=== PATIENT | female | born 1975 | race Caucasian/White ===

== ENCOUNTER 2016-12-30 22:00 | Inpatient (IN) | payer OTHER ==
--- NOTE | ~2016-12-30 | DS ---
Unit #: [id number] #: [id number] Patient: MONTSERRAT MCLEOD [id number] [place] [address] [id number] MR#: [id number] NAME: MONTSERRAT MCLEOD ROOM: 32 Age: 41 Sex: F Admission Date: 12/31/2016 : 1975 Discharge Date: 01/05/2017 Attending Physician: Jed Spaulding M.D. Primary Care Physician: Primary Care Physician No DISCHARGE SUMMARY REASON FOR ADMISSION The patient is a 41-year-old white female, who is currently homeless. She is admitted with increasing depression, suicidal ideation, and abuse of methamphetamine. HOSPITAL COURSE The patient was admitted to the [address] [place] [address] unit and placed on suicide precautions. She was continued on previously prescribed medications including BuSpar, Seroquel, Zoloft, and trazodone, and Zoloft was increased to 150 mg b.i.d. to address the patient's depressive symptoms. The patient remained seclusive to room with little participation within rather chaotic therapeutic milieu. By 01/05/2017, the patient made arrangements to stay with a friend and denied suicidal ideation. She requested discharge, and it was so ordered. FINAL DIAGNOSES Major depressive disorder, recurrent, moderate; posttraumatic stress disorder by history; alcohol use disorder; cannabis use disorder; methamphetamine use disorder; hypothyroidism; and large part, per patient history, dental caries. DISPOSITION ON DISCHARGE The patient is discharged on the following medications; Zoloft 150 mg daily for depression, BuSpar 15 mg b.i.d. for anxiety, Seroquel 100 mg b.i.d. and 200 mg at bedtime for mood stabilization, trazodone 150 mg at h.s. p.r.n. insomnia. DISCHARGE INSTRUCTIONS No dietary or physical restrictions were placed on the patient at the time of discharge. FOLLOWUP Followup will take place through the auspices of community mental health resources. PROGNOSIS The patient's prognosis is considered fair. Dictated by... Jed Spaulding M.D. CB/donl Unit #: [id number] #: [id number] Patient: MONTSERRAT MCLEOD TD: 01/06/2017 02:30 JOB #: [id number] DISCHARGE SUMMARY Page 1 of 1 X Jed Spaulding MD DISCHARGE SUMMARY
--- NOTE | ~2016-12-30 | PN ---
Unit #: [id number] #: [id number] Patient: MONTSERRAT MCLEOD [id number] [facility] [address] [place] [address] [id number] I MR#: [id number] NAME: MONTSERRAT MCLEOD ROOM: 13 Age: 41 Sex: F Admission Date: 12/31/2016 : 1975 Attending Physician: Jed Spaulding M.D. Admitting Physician: Jed Spaulding M.D. Primary Care Physician: Primary Care Physician Colleen [facility] PROGRESS NOTES DATE 01/02/2017 DISCUSSION The patient is again noted to be sleeping soundly. I will ask staff to awaken the patient and push her to more therapeutic activities. She is continuing to endorse positive suicidal ideation and hopelessness. Dictated by... Jed Spaulding M.D. CB/doug TD: 01/02/2017 16:37 JOB #: [id number] [facility] PROGRESS NOTES Page 1 of 1 X Jed Spaulding MD PROGRESS NOTE
--- NOTE | ~2016-12-30 | PN ---
Unit #: [id number] #: [id number] Patient: MONTSERRAT MCLEOD [id number] [facility] [address] [place] [address] [id number] I MR#: [id number] NAME: MONTSERRAT MCLEOD ROOM: 32 Age: 41 Sex: F Admission Date: 12/31/2016 : 1975 Attending Physician: Jed Spaulding M.D. Admitting Physician: Jed Spaulding M.D. Primary Care Physician: Colleen Primary Care Physician [facility] PROGRESS NOTES DATE 01/03/2017 DISCUSSION The patient is in bed today. She continues to complain of hopelessness and suicidal ideation. She continues to complain of severe back pain in spite of recently added ibuprofen. We continued current treatment. I will ask the patient's long term care social worker to see her tomorrow regarding her homeless status and her expectations regarding this and the hospital's ability to intervene therein are redirected today. Dictated by... Jed Spaulding M.D. CB/angeles TD: 01/04/2017 13:49 JOB #: [id number] [facility] PROGRESS NOTES Page 1 of 1 X Jed Spaulding MD X PROGRESS NOTE
--- NOTE | ~2016-12-30 | PN ---
Unit #: [id number] #: [id number] Patient: MONTSERRAT MCLEOD [id number] [facility] [address] [place] [address] [id number] MR#: [id number] NAME: MONTSERRAT MCLEOD ROOM: 32 Age: 41 Sex: F Admission Date: 12/31/2016 : 1975 Attending Physician: Jed Spaulding M.D. Admitting Physician: Jed Spaulding M.D. Primary Care Physician: Colleen Primary Care Physician [facility] PROGRESS NOTES DATE 01/04/2017 DISCUSSION (1) saw this patient. Remained seclusive generally with little participation within therapeutic milieu. She continues to endorse sad mood but is reporting a little bit of suicidal ideation. (2) gently and firmly redirected. Dictated by... Jed Spaulding M.D. CB/angeles TD: 01/04/2017 14:28 JOB #: [id number] [facility] PROGRESS NOTES Page 1 of 1 X Jed Spaulding MD X PROGRESS NOTE
--- NOTE | ~2016-12-30 | HP ---
Unit #: [id number] #: [id number] Patient: TOYA MCLEOD [id number] [place] [address] [id number] MR#: [id number] NAME: TOYA MCLEOD ROOM: 13 Age: 41 Sex: F Admission Date: 12/31/2016 : 1975 Attending Physician: Jed Spaulding M.D. Admitting Physician: Jed Spaulding M.D. Primary Care Physician: Primary Care Physician No HISTORY AND PHYSICAL HISTORY OF PRESENT ILLNESS Toya is a 41-year-old female admitted on 12/31/[address] [place] [address] for homicidal ideations. PAST MEDICAL HISTORY Heart problems. PAST SURGICAL HISTORY What she reports as pericardial window, section times two and partial hysterectomy. SOCIAL HISTORY Smokes cigarettes daily, social alcohol use and occasional marijuana use. She is currently and homeless. FAMILY HISTORY Noncontributory. REVIEW OF SYSTEMS CONSTITUTIONAL: No fever or chills. HEENT: Denies any sore throat, ear pain or runny nose. CARDIOVASCULAR: Denies chest pain, irregular heart rhythm or palpitations. CHEST: Denies shortness of breath or cough. No hemoptysis. GASTROINTESTINAL: Denies nausea, vomiting, diarrhea or chronic constipation. ENDOCRINE: Denies history of increased thirst or urination. No recent significant weight loss or gain. GENITOURINARY: Denies dysuria, frequency, or hematuria. SKIN: Denies any rashes. HEMATOLOGIC: Denies history of increased bleeding or bruising. MUSCULOSKELETAL: Denies any hot, swollen joints. No generalized muscle pain. NEUROLOGIC: Denies problems with vision or speech. No frequent, severe headaches. No numbness, tingling or weakness in any extremities. Denies loss of bladder or bowel control. CURRENT MEDICATIONS 1. BuSpar 2. Seroquel 3. Zoloft 4. Trazodone Unit #: [id number] #: [id number] Patient: TOYA MCLEOD ALLERGIES Penicillin and Sulfa. PHYSICAL EXAMINATION GENERAL: Alert, oriented, in no acute distress. VITAL SIGNS: Blood pressure 145/98, heart rate 111, respirations 18, temperature 98.6. HEIGHT: 4 foot 8 inches. WEIGHT: 146 pounds. SKIN: Multiple scars over body. See photograph in chart. HEENT: Normocephalic. TMs not viewed. Oral and nasal passages clear. Conjunctivae clear. PERRLA. EOMs intact. NECK: Supple without lymphadenopathy or thyromegaly. HEART: Regular rate and rhythm without murmur. LUNGS: Clear. ABDOMEN: Soft, nontender, without masses or hepatosplenomegaly. : Not done. EXTREMITIES: No evidence of cyanosis, clubbing or edema. Moves all without focal deficit. NEUROLOGICAL: Grossly within normal limits. Cranial Nerves: II: Visual narvaez are intact. III, IV AND : Extraocular movements are intact. Pupils are equal, round and reactive to light. V: Facial sensation is grossly normal. VII: Facial movements and expression are normal. VIII: Auditory acuity grossly intact. IX, X: Uvula is midline. Phonation is normal. XI: Patient shrugs shoulders and turns head normally. XII: Tongue protrudes in the midline. Sensory and Motor Function: Sensory and motor sensation is grossly normal. Motor: moves all extremities well. Coordination: Gait is normal. Deep Tendon Reflexes: Intact. IMPRESSION Psychiatric admission possible heart problems. RECOMMENDATIONS Psychiatric, per psychiatrist. MEDICAL: I see no contraindications to participating in facility's activities. MEDICAL PROGNOSIS Good. MEDICAL CONDITION Stable. Dictated by..Louisa Mcmahon/mariel TD: 12/31/2016 21:10 Unit #: [id number] #: [id number] Patient: TOYA MCLEOD JOB #: [id number] HISTORY AND PHYSICAL Page 1 of 1 X ARIS EAGLE APRN HISTORY AND PHYSICAL
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
[~2016-12-30 22:00] MED LIST: ACETAMINOPHEN650 M1 PO; HYDROCODON-ACE1 EAC7 PO; IRON325 ( 651 PO; LEVAQUIN PO; LEVOTHROID100 MC1 PO; LEVOTHYROXINE100 MCG PO; MACROBID100 M1 PO; MOTRIN600 M1 PO; ONDANSETRO4 MG/UDTAB PO; ORTHO-CYCLEN1 TAB PO; PEPCID AC20 MG PO; PERCOCET5/325 PO; PHENERGAN25 MG PO; SYNTHROID0.1 MG DOB; SYNTHROID0.1 MG PO; ULTRAM PO; VOLTAREN75 MG PO
== END 2017-01-05 17:33 | disposition home or self-care (01) | DRG 885 ==
LOC: P1E 12-31 → P1S 12-31
DX: F33.1 Major depressive disorder, recurrent, moderate (principal); R45.851 Suicidal ideations; R45.850 Homicidal ideations; F43.10 Post-traumatic stress disorder, unspecified; F10.10 Alcohol abuse, uncomplicated; F12.10 Cannabis abuse, uncomplicated; E03.9 Hypothyroidism, unspecified; I51.7 Cardiomegaly; K02.9 Dental caries, unspecified; Z88.0 Allergy status to penicillin; Z88.2 Allergy status to sulfonamides; Z59.0 Homelessness; Z90.710 Acquired absence of both cervix and uterus; F17.210 Nicotine dependence, cigarettes, uncomplicated; F15.10 Other stimulant abuse, uncomplicated